=== PATIENT | female | born 1975 | race Caucasian/White ===

== ENCOUNTER 2024-07-21 22:32 | Emergency (ER) | payer OTHER, SELFPAY ==
--- NOTE | ~2024-07-21 | XR_ITS ---
CLINICAL HISTORY: avulsion left 5th digit 3 view left 5th digit Comparison: None Findings: Acute comminuted fracture distal tuft of the distal phalanx of the 5th digit. Overlying soft tissue defects with marked soft tissue swelling. Soft tissue gas noted. No dislocation. Minimal osteoarthritis of the imaged wrists. Superficial bandage opacities about 5th digit. IMPRESSION: 1. Near anatomic alignment of the acute comminuted distal tuft fractures of the 5th digit. 2. Soft tissue defects with gas of the marked soft tissue swelling. This document has been electronically signed by: Reji Hansen MD on 07/21/2024 23:20:56
[2024-07-21 22:37] VITALS: BP 118/72; PULSE 89; RESP 16; TEMP 36.8; O2SAT 98; BMI 23.0
== END 2024-07-22 00:28 | disposition left against medical advice (07) ==
PROVIDERS: Emergency Provider Emergency Medicine; PCP Nurse Practitioner Primary Care
DX: M79.642 Pain in left hand (principal)
CPT/HCPCS: 73140; 99281

== ENCOUNTER → 2024-07-21 22:52 | Outpatient (BNV) | payer OTHER, SELFPAY | PROVIDERS: Emergency Provider Emergency Medicine; PCP Nurse Practitioner Primary Care; Visit Provider Radiology Neuroradiology | DX: S61.412A Laceration without foreign body of left hand, initial encounter (principal) | CPT/HCPCS: 73140 ==